=== PATIENT | male | born 1970 | race Caucasian/White ===

== ENCOUNTER 2018-11-09 06:55 | Day surgery (SDC) | payer BC ==
[2018-11-09 07:16] VITALS: BMI 41.2
[2018-11-09] MEDS ORDERED: Propofol 10 mg/ml Inj (20 ML) ONE ×2 (09:36)
[2018-11-09 10:19] VITALS: TEMP 97.3
[2018-11-09 10:44] VITALS: O2SAT 97
[2018-11-09 10:47] VITALS: BP 95/51; PULSE 62; RESP 15
== END 2018-11-09 10:57 | disposition home or self-care (01) ==
LOC: C.ENDO 06:55
PROVIDERS: ATTEND Internal Medicine Gastroenterology
DX: Z12.11 Encounter for screening for malignant neoplasm of colon (principal); Z86.010 Personal history of colon polyps; K64.2 Third degree hemorrhoids
CPT/HCPCS: G0105; J2704

== ENCOUNTER 2018-12-06 07:43 | Outpatient (CLI) | payer BC | END 2018-12-06 07:44 | disposition home or self-care (01) | LOC: C.PAT 07:43 | DX: K43.2 Incisional hernia without obstruction or gangrene (principal); M62.08 Separation of muscle (nontraumatic), other site ==